=== PATIENT | female | born 1975 | race Two or more races ===

== ENCOUNTER 2024-01-06 22:25 | Emergency (ER) | payer OTHER ==
[~2024-01-06] VITALS: Ht 165.1 cm; Wt 59.0 kg
[2024-01-06] MEDS ORDERED: 0.9 % SODIUM CHLORIDE 1,000 ML IV ONE (23:15)
[2024-01-06 23:17] LABS: HEMATOCRIT 35.7 % (36.0-45.00); HEMOGLOBIN 12.4 g/dL (12.0-15.00); MEAN CELL VOLUME 87.8 fL (80.00-100.00); MEAN CORPUSCULAR HEMOGLOBIN 30.4 pg (27.00-32.0); MEAN CORPUSCULAR HGB CONC 34.6 g/dl (32.0-36.0); PLATELET COUNT 259 K/uL (150-450); RED BLOOD COUNT 4.07 M/uL (4.00-6.00)
[2024-01-06 23:37] LABS: INR 1.03; PARTIAL THROMBOPLASTIN TIME 21.5 SECONDS (22.0-34.0); PROTHROMBIN TIME 11.2 SECONDS (9.0-11.5)
[2024-01-06 23:44] LABS: ALKALINE PHOSPHATASE 53 U/L (50-136); ALT/SGPT 28 U/L (12-78); ANION GAP 12 (10.0-20.0); AST/SGOT 19 U/L (15-37); BLOOD UREA NITROGEN 15 mg/dL (7-18); BUN CREA RATIO 19 (7.0-25.0); CALCIUM 8.6 mg/dL (8.5-10.1); CARBON DIOXIDE 23 mEq/L (21-32); CHLORIDE 112 mmol/L (98-107); CREATININE SERUM 0.77 mg/dL (0.55-1.02); GFR 79.67; GLOBULINA 3.5 G/DL (2.4-3.5); GLUCOSE FASTING 106 mg/dL (65-100); OSMOLALITY SERUM 286 MOSM/KG (275-295); POTASSIUM 4.02 mEq/L (3.5-5.1); SODIUM 143 mmol/L (136-145); TOTAL PROTEIN 7.5 gm/dL (6.4-8.2)
[2024-01-06 23:52] LABS: HCG QUANTITATIVE < 1 mUI/mL (1-3)
[2024-01-07] MEDS ORDERED: KETOROLAC TROMETHAMINE 30 MG VIAL ONE ×2 (01:45→05:12)
[2024-01-07] MEDS ORDERED: KETOROLAC TROMETHAMINE 30 MG VIAL IV ONE ×2 (01:45→05:15)
[2024-01-07] MEDS ORDERED: PIPERACILLIN/TAZOBACTAM SODIUM 3.375 GM VIAL IV ONE ×2 (01:45→03:36)
[2024-01-07 01:59] LABS: PH,URINE 5.5 (5.0-8.0); URINE APPEARANCE Clear; URINE BILIRRUBIN Negative (NEGATIVE); URINE BLOOD NHT; URINE COLOR Yellow; URINE GLUCOSE Negative (NEGATIVE); URINE KETONE Trace (NEGATIVE); URINE LEUKOCYTE Small; URINE NITRATE Negative; URINE PROTEIN Negative (NEGATIVE)
[2024-01-07 02:02] LABS: URINE BACTERIA 608.4 uL (0.0-1933); URINE EPITHELIAL CELLS 12.2 uL (0.0-38.8); URINE RBC 27.3 uL (0.0-20.8); URINE WBC 45.4 uL (0.0-23.2)
[2024-01-07 02:12] LABS: URINE CAST 0.61 uL (0.0-1.40)
[2024-01-07] MEDS ORDERED: CIPRO500 MG PO (05:06)
[2024-01-07] MEDS ORDERED: KETO10TA2 PO (05:06)
[2024-01-07] MEDS ORDERED: ACETAMINOPHEN500 M2 (13:17)
[2024-01-07] MEDS ORDERED: NASAL MIST126 ML (13:17)
== END 2024-01-07 05:37 | disposition home or self-care (01) ==
LOC: ER 22:25
PROVIDERS: General Practice
DX: N39.0 Urinary tract infection, site not specified (principal); N83.201 Unspecified ovarian cyst, right side; K57.30 Diverticulosis of large intestine without perforation or abscess without bleeding; I95.9 Hypotension, unspecified; R55 Syncope and collapse; Z20.822 Contact with and (suspected) exposure to COVID-19